=== PATIENT | female | born 1950 | race Caucasian/White ===

== ENCOUNTER 2016-09-06 10:39 | Day surgery (SDC) | payer OTHER, MEDICARE ==
--- NOTE | 2016-07-12 15:00 | PCM.ANEPRE ---
Anesthesia Pre-Op Review Reason for Review: office request- cardiac concerns Anesthesia Recommendations: Proceed with Procedure Additional Comments 66 y.o with history of palpitations. Recent work up shown nl echo and 11 days of rythym monitoring showed brief runs of SVT. Okay to proceed pending DOS anesthesiologists review Vaughn Cherry DO Jul 12, 2016 15:00
[~2016-09-06] VITALS: Ht 160 cm; Wt 58.0 kg
[2016-09-06] VITALS (7 sets, daily range): BP systolic 107–150; BP diastolic 67–95; PULSE 65–72; RESP 14–17; O2SAT 68–99
[~2016-09-06 10:39] MED LIST: ACET1TAB12 PO; Lactated Ringer's 1,000 ML IV SCH
[2016-09-06] MEDS ORDERED: fentaNYL-PF 50 mCg/mL 2 mL Inj ONE (10:40)
[2016-09-06] MEDS ORDERED: Ondansetron 2 mg/mL 2 mL Inj ONE (10:40)
[2016-09-06] MEDS ORDERED: Dexamethasone 4 mg/mL Inj ONE (10:40)
[2016-09-06] MEDS ORDERED: Propofol 10,000 mCg/mL 20 mL Inj ONE (10:40)
[2016-09-06] MEDS ORDERED: Ketamine 10 mg/mL 20 mL Inj ONE (10:40)
[2016-09-06] MEDS ORDERED: Lactated Ringer's 1,000 ML IV ONE (11:02)
[2016-09-06] MEDS ORDERED: Lactated Ringer's 500 ML IV PRN (12:34)
[2016-09-06] MEDS ORDERED: Lactated Ringer's 1,000 ML IV SCH (12:34)
[2016-09-06] MEDS ORDERED: HYDROmorphone 1 mg/mL Inj IVPUSH PRN (12:35)
[2016-09-06] MEDS ORDERED: Ondansetron 2 mg/mL 2 mL Inj IVPUSH PRN (12:35)
[2016-09-06] MEDS ORDERED: MetoCLOpramide 5 mg/mL 2 mL Inj IVPUSH PRN (12:35)
[2016-09-06] MEDS ORDERED: Phenylephrine 10,000 mCg/mL Inj IVPUSH PRN (12:35)
[2016-09-06] MEDS ORDERED: Dexamethasone 4 mg/mL Inj IVPUSH PRN (12:35)
[2016-09-06] MEDS ORDERED: fentaNYL-PF 50 mCg/mL 2 mL Inj IVPUSH PRN (12:35)
[2016-09-06] MEDS ORDERED: EPHEDrine Sulfate 50 mg/mL Inj IVPUSH PRN (12:35)
[2016-09-06] MEDS ORDERED: Atropine 0.4 mg/mL Inj IVPUSH PRN (12:35)
[2016-09-06] MEDS ORDERED: Labetalol 5 mg/mL 4 mL Inj IV PRN (12:35)
[2016-09-06] MEDS ORDERED: Lidocaine 2%-Epi 1:100,000 20 mL Inj INFILTRATE ONE (13:00)
[2016-09-06] MEDS ORDERED: Ropivacaine-PF 0.5% 30 mL Inj INFILTRATE ONE (13:00)
--- NOTE | 2016-09-06 13:03 | PCM.HPANE ---
Patient Data Date of Service: Sep 06, 2016 Surgeon Admitting Provider: Attending Provider:Gio Doan DO Primary Care Physician:Trey Other Provider:Sandro Velarde Anesthesia Reason for Visit Left Torn Medial & Lateral Meniscus Ht/WT & BMI Height (Feet): 5 Height (Inches): 3 Weight (Kilograms): 58 Body Mass Index 22.00 Allergies Coded Allergies: droperidol (Verified Allergy, Severe, hallucinations, 09/02/16) hydrocodone (Verified Adverse Reaction, Severe, N&V, 09/02/16) Uncoded Allergies: FLUOROQUINOLONES (Adverse Reaction, Severe, Headache, 09/06/16) migraine, nausea, hallucinating Past Anesthesia History Anesthesia History: Denies:: Anesthesia Reactions, Malignant Hyperthermia Diabetes History Hx Diabetes?: No MRSA MRSA: No Medications Hypertension Medication: No Home Meds Incl Beta Nick: No Reported Medications Acetaminophen/Codeine 300-30mg (Tylenol/Codeine #3)1 Each Tablet1 Tablet PO HS PRN Pain Ref 0 09/02/16 History History of ENT Problems?: No Hx of Heart Problems?: Yes Cardiovascular History: Positive for:: Heart Murmur Irregular Heartbeat (palpitations- cardiac w/u 02/2016) Denies:: AICD Congestive Heart Failure Hypertension Peripheral Vascular Rheumatic Fever Thrombophlebitis Valvular Heart Disease (echo 2016- ef 60-65%) Hx of Respiratory Problem?: No Respiratory History: Denies:: Chest Surgery (POSSIBLE PLEURISY IN CHILDHOOD) Oxygen Administration Tuberculosis Use of C-PAP Machine Hx Neurologic Problems?: No Neurological History: Positive for:: Headaches Denies:: CVA Multiple Sclerosis Parkinson's Disease Seizures TIA Hx of GI Problems?: No Hx of Problems?: No Female Hx: Denies:: Currently Problems with Breasts? Skin History: Denies:: History Skin Disorders? Pressure Ulcers Hx Musculoskeletal Problems?: Yes Musculoskeletal History: Positive for:: Musculoskeletal Trauma (left knee current admission problem) Denies:: Joint Replacement Hx of Psycho/Social Problems?: No Hx Surgeries?: Yes (appy, ORIF tib-fib) Hx Any Other Health Problems?: Yes Other History: Denies:: Cancer Thyroid Disease History Blood Transfusions: Denies:: Blood Transfusions Hx Diabetes: No Hx Alcohol Use: NoHx Substance Use: No Smoking Status: Never Smoker Have You Smoked inLast 12 mo: No Stop/Bang Treated for Sleep Apnea?: No Do You Have a CPAP Machine?: No S-Snoring: Do You Snore Loudly: No T-Tired: feel tired, fatigued: Yes O-Obsered: Observed not breath: No P-Blood Pressure: treated: No B- Body Mass Index > 35 kg/m2: No A- Age over 50: Yes N- Neck Large Circumference: No G- Gender Male: No HUSSEIN Total Score: 2 HUSSEIN Risk Assessment: Low Risk, <3 Yes Risk Assessment Category Category 1A: Patient has history of documented sleep apnea, and HAS NOT received any narcotic, sedative or anesthesia administration during this stay. Category 1B: Patient has history of documented sleep apnea, and HAS received any narcotic , sedative or anesthesia administration during this stay Category 2: Patient has SUSPECTED Obstructive Sleep Apnea, and HAS received any narcotic , sedative or anesthesia administration during this stay. Category 3: Patient has SUSPECTED Obstructive Sleep Apnea and HAS NOT received narcotic, sedative or anesthesia administration during this stay. Category 4: Outpatient in Procedural Areas with known sleep apnea or who screen positive for High Risk via the STOP/BANG questionnaire. Exam Exam Vital Signs Vital Signs Date Time Temp Pulse Resp B/P Pulse Ox O2 Delivery O2 Flow Rate FiO2 09/06/16 11:14 36.6 66 16 150/80 98 Room Air General Appearance: Alert, Oriented X3, Cooperative, No Acute Distress HEENT/AIRWAY: MP 2 Lungs: Clear to Auscultation, Normal Air Movement Heart: Exam Unremarkable, Normal S1, Normal S2 Meds/Labs/Diagnostics Admission Meds Current Medications Lactated Ringer's (Lr) 1,000 ml @ ud STK-MED ONCE IV Last administered on 09/06t 11:02; Start 09/06/16 at 11:02; Stop 09/06/16 at 11:03; Status DC Plan Impression Patient chart reviewed, patient interviewed and anesthestic plan with risks, benefits, and alternatives discussed, and informed consent obtained. NPO Status: confirmed before mn ASA Physical Status: ASA1 Normal Healthy Anesthetic Support Modalities: [place] Scope Anesthetic Plan: GA Bene/Risks/Altern/Consents: Yes HP Complete Prior to Induction: Yes Shad Anne DO Sep 06, 2016 13:03
[2016-09-06] MEDS ORDERED: Acetaminophen IV 1,000 MG in IV Premix 1 EACH IV PRN (13:20)
[2016-09-06] MEDS ORDERED: Codeine-APAP 30-300 mg Tablet PO PRN (13:25)
--- NOTE | 2016-09-06 13:26 | PCM.ANEP1 ---
Post Anesthesia Phase 1 PACU Phase 1 Assessment Date of Service: Sep 06, 2016 Vital Signs Vital Signs Date Time Temp Pulse Resp B/P Pulse Ox O2 Delivery O2 Flow Rate FiO2 09/06/16 11:14 36.6 66 16 150/80 98 Room Air Anesthetic Administered: GA Level of Alertness: Sleepy, easy to arouse NICOLE's with Equal Strength: Yes Pain: No Nausea or Vomiting: No Airway Device: Oralpharangeal Airway (LMA3) Oxygen Delivery: Simple Mask Lungs: Clear to Auscultation, Normal Air Movement Dermatome Level: Full Sensation Shad Anne DO Sep 06, 2016 13:26
--- NOTE | 2016-09-06 13:48 | OP ---
[address] [address] OPERATIVE REPORT PATIENT: DASHA BABB : 1950 MR#: [id number] ADMIT: 09/06/2016 JOB ID: [id number] DATE OF SURGERY: 09/06/2016 PREOPERATIVE DIAGNOSIS(ES): Left knee torn medial meniscus and torn lateral meniscus. POSTOPERATIVE DIAGNOSIS(ES): Left knee torn medial meniscus and torn lateral meniscus. PROCEDURES: Left knee video arthroscopy with partial medial and partial lateral meniscectomy. SURGEON: Gio Doan DO ANESTHESIA: General. INDICATIONS: The patient is a 66-year-old female who injured her left knee in 2014 when she slipped on a slippery floor. She developed a proximal fibular nonunion fracture and a recent MRI showed torn medial and lateral meniscus. We discussed treatment options for this and she wished to proceed with a knee arthroscopy. We discussed risks, benefits, and possible complications of surgery including, but not limited to injury to nerves and vessels, infection, bleeding, incomplete relief of symptoms, stiffness, need for additional procedures. The patient had good understanding. All questions were answered and she wished to proceed. PROCEDURE IN DETAIL: The patient was brought to the operating room. She was given a LMA general anesthetic. The left lower extremity was sterilely prepped and draped and an incision was made over the anterolateral knee at the level of the joint line. A blunt trocar was introduced into the knee and inspection was undertaken. She was found to have a tear in the medial meniscus as well as a tear in the lateral meniscus. A medial portal was established under needle localization. Her meniscus was then trimmed back to a stable base with a combination of biters and shaver. Her ACL was found to be intact. Her lateral compartment had a tear in the lateral meniscus along the mid body and posterior horn. This was resected back to a stable base with a combination of biters and andreas. She has had some mild degenerative changes. Some C2 and C3 areas of chondromalacia on the medial side primarily. She has a small amount of synovitis in the patellofemoral joint which was resected. The scope was then removed. The portals were closed with interrupted nylon suture. Naropin was added as an adjunct local anesthetic. Sterile dressings were applied. Patient tolerated the procedure well. Blood loss was minimal. POSTOPERATIVE PROTOCOL: The patient weightbear to tolerance. Use crutches as needed. Ice and elevate and follow up in two weeks in clinic or sooner if needed.
--- NOTE | 2016-09-06 15:24 | PCM.ANEP2 ---
Post Anesthesia Evaluation ASA/CMS Post Anesthesia Date of Service: Sep 06, 2016 VS in Patient's Normal Range?: Yes Resp Stable; Airway Patent?: Yes CV Function & Hydration Stable: Yes Mental Status Recovered?: Yes Pain control Satisfactory?: Yes N/V Control Satisfactory?: Yes Shad Anne DO Sep 06, 2016 15:24
== END 2016-09-06 23:59 | disposition home or self-care (01) ==
LOC: SAS 10:39
PROVIDERS: ATTEND Orthopaedic Surgery
DX: M23.252 Derangement of posterior horn of lateral meniscus due to old tear or injury, left knee (principal); M23.232 Derangement of other medial meniscus due to old tear or injury, left knee; M22.42 Chondromalacia patellae, left knee; W01.0XXA Fall on same level from slipping, tripping and stumbling without subsequent striking against object, initial encounter; Y93.89 Activity, other specified; Y92.238 Other place in hospital as the place of occurrence of the external cause; Y99.0 Civilian activity done for income or pay; I10 Essential (primary) hypertension; I47.1 Supraventricular tachycardia; I51.7 Cardiomegaly; Z79.82 Long term (current) use of aspirin; R01.1 Cardiac murmur, unspecified
CPT/HCPCS: 29880; J1100; J2250; J2405; J2795; J3010; J7120